=== PATIENT | male | born 1965 | race Caucasian/White ===

== ENCOUNTER 2017-01-21 19:44 | Emergency (ER) | payer OTHER ==
--- NOTE | 2017-01-21 19:48 | PDOC ---
History of Present Illness - General History Source: Patient Exam Limitations: No Limitations - History of Present Illness Initial Comments: 01/21/17 19:57 The patient is a 51 year old male, with a significant past medical history of recent herniated discs , who presents to the emergency department with a back pain for about 2 weeks. The patient reports about 2 weeks ago bending down to pickle pumper something with the immediate onset of pain in his lower back area after. He reports since that incident his pain has been increasingly worse. He reports the pain often radiates from his lower back into his left leg down into his toes. He also notes as a result having some numbness and tingling in his LLE. 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 He reports going for an MRI which revealed herniated discs at L4L5. As per orders, the patient was sent to physical therapy and was prescribed muscle relaxants with no alleviation of his pain. He denies any recent fevers, chills, headache or dizziness. He denies any recent nausea, vomit , diarrhea or constipation. PAST MEDICAL HISTORY: See HPI PAST SURGICAL HISTORY: No pertinent history. FAMILY HISTORY: No pertinent history. SOCIAL HISTORY: Patient lives with family and is employed. MEDICATIONS: Reviewed. ALLERGIES: As per nursing notes. ROS General: No fevers or chills, no weakness, no weight loss HEENT: No change in vision. No sore throat. No ear pain CardioVascular: No chest pain or shortness of breath Respiratory:No cough, or wheezing. Gastrointestinal: No nausea, vomiting, diarrhea or constipation. No rectal bleeding Genitourinary: No dysuria, hematuria, or frequency Musculoskeletal: +back pain. No joint or muscle pain or swelling Neurologic: No headache, vertigo, dizziness or loss of consciousness Psychiatric: No depression Skin: No rashes or easy bruising Endocrine: no increased thirst or abnormal weight change Allergic: no skin or latex allergy All other systems reviewed and normal Exam: GENERAL: The patient is awake, alert, and fully oriented, in no acute distress. HEAD: Normal with no signs of trauma. EYES: Pupils equal, round and reactive to light, extraocular movements intact, sclera anicteric, conjunctiva clear. BACK: Tenderness and spasms on palpation to the left lateral paraspinal area with tenderness over the sciatic notch. EXTREMITIES: Normal range of motion, no edema. NEUROLOGICAL: Normal speech, normal gait. PSYCH: Normal mood, normal affect. SKIN: Warm, Dry, normal turgor, no rashes or lesions noted. <Lester Milian - Last Filed: 01/21/17 19:57> - General History Source: Patient Exam Limitations: No Limitations - History of Present Illness Initial Comments: 01/21/17 20:38 A portion of this note was documented by scribe services under my direction. I have reviewed the details of the note, within reason, and agree with the documentation. The case summary and management plan written by me. Assessment and plan: This is a 51-year-old male with approximate 2 weeks of the low back pain with radiation down his left leg secondary to a herniated disc at the epidural level of L4 as well as L5. Patient symptoms are consistent with sciatica. Patient saw a chiropractor that seemed to make the pain worse. Patient does have an orthopedist that he saw and had an MRI showing the disc herniation. Patient was given medication here in the emergency room with improvement of his symptoms but not complete resolution.. Patient discharged home with prescriptions for ibuprofen and diazepam. Patient was told to call his orthopedist in the morning. <Hillary Ballard I - Last Filed: 01/21/17 21:46> - General Chief Complaint: Back Pain Stated Complaint: BACK PAIN Time Seen by Provider: 01/21/17 19:47 Past History <Lester Milian - Last Filed: 01/21/17 19:57> - Past Medical History GI Disorders: Yes (H-PYLORI GASTRITIS, DIVERTICULAR ABSCESS, COLON POLYP) Hypercholesterolemia: Yes - Psycho/Social/Smoking Cessation Hx Anxiety: No Suicidal Ideation: No Smoking History: Current some day smoker Have you smoked in the past 12 months: No Number of Cigarettes Smoked Daily: 2 'Breaking Loose' booklet given: 10/04/13 Hx Alcohol Use: Yes ([facility].) Drug/Substance Use Hx: No Substance Use Type: None Hx Substance Use Treatment: No <Hillary Ballard I - Last Filed: 01/21/17 21:46> - Past Medical History Allergies/Adverse Reactions: Allergies Allergy/AdvReac Type Severity Reaction Status Date / Time No Known Allergies Allergy Verified 10/04/13 20:42 Home Medications: Ambulatory Orders Cyclobenzaprine HCl [Flexeril 10 mg] 10 mg PO TID PRN 01/21/17 Diazepam [Valium] 5 mg PO HS #5 tablet MDD 1 01/21/17 Diclofenac Sodium 50 mg PO TID 01/21/17 Gabapentin 100 mg PO TID #90 capsule 01/21/17 *Physical Exam - Vital Signs Last Vital Signs Temp Pulse Resp BP Pulse Ox 98 F 79 14 138/100 100 01/21/17 19:47 01/21/17 19:47 01/21/17 19:47 01/21/17 19:47 01/21/17 19:47 <Lester Milian - Last Filed: 01/21/17 19:57> *DC/Admit/Observation/Transfer - Attestations Scribe Attestion: 01/21/17 19:55 Documentation prepared by Lester Milian, acting as medical physiologist for Hillary Ballard MD. <Lester Milian - Last Filed: 01/21/17 19:57> - Discharge Dispostion Admit: No <Hillary Ballard I - Last Filed: 01/21/17 21:46> Diagnosis at time of Disposition: Sciatica Qualifiers: Laterality: left Qualified Code(s): M54.32 - Sciatica, left side - Discharge Dispostion Disposition: HOME Condition at time of disposition: Good - Prescriptions Prescriptions: Gabapentin 100 mg PO TID #90 capsule Diazepam [Valium] 5 mg PO HS #5 tablet MDD 1 - Referrals Referrals: Reinaldo Jimenez MD [Primary Care Provider] - - Patient Instructions Printed Discharge Instructions: Sciatica (Alternative Therapy), DI for Back Pain With Sciatica Additional Instructions: Stop taking those cyclobenzaprine (flexeril) Take the Valium instead one tablet before bedtime it will make you very drowsy so limited to the nighttime hours.. Continue taking the diclofenac. It is an anti-inflammatory and will help with the pain. Start taking gabapentin 1 tablet 3 times a day. Follow-up with a pain specialist. If you need a pain specialist call Dr. Garcia at [phone] for an appointment. Return to the emergency department immediately with ANY new, persistent or worsening symptoms. Continue any medications as previously prescribed by your physician. You should follow up with your primary doctor as soon as possible regarding today's emergency department visit. . Please make sure your doctor reviews the results of your emergency evaluation. Thank you for coming to the Emergency Department today for your care. It was a pleasure to see you today. Please note that your evaluation is INCOMPLETE until you follow-up with your doctor.
[2017-01-21] MEDS ORDERED: ACETAMINOPHEN 1000 MG/100 ML VIAL (NON FORMULARY) IVPB ONE (19:52)
[2017-01-21] MEDS ORDERED: diazePAM 5 MG TABLET PO ONE (19:52)
[2017-01-21 19:53] VITALS: PULSE 79; TEMP 98; BMI 28.0
[2017-01-21] MEDS ORDERED: DEXAMETHASONE SOD PHOSPHATE 10 MG/1 ML VIAL IVPUSH ONE (19:53)
[2017-01-21] MEDS ORDERED: KETOROLAC TROMETHAMINE 30 MG/1 ML VIAL IVPUSH ONE (19:53)
[2017-01-21] MEDS ORDERED: DEXAMETHASONE SOD PHOSPHATE 10 MG/1 ML VIAL ONE (20:01)
[2017-01-21] MEDS ORDERED: KETOROLAC TROMETHAMINE 30 MG/1 ML VIAL ONE (20:01)
[2017-01-21] MEDS ORDERED: diazePAM 5 MG TABLET ONE (20:01)
[2017-01-21] MEDS ORDERED: ACETAMINOPHEN INJECTION 100 ML IVPB ONE (20:06)
[2017-01-21 21:40] VITALS: BP 148/98
== END 2017-01-21 21:47 | disposition home or self-care (01) ==
LOC: FER 19:44
PROC: 3E033NZ Introduction of Analgesics, Hypnotics, Sedatives into Peripheral Vein, Percutaneous Approach (ICD-10-PCS; principal; 2017-01-21)
PROC: 3E033GC Introduction of Other Therapeutic Substance into Peripheral Vein, Percutaneous Approach (ICD-10-PCS; 2017-01-21)
PROC: 3E0333Z Introduction of Anti-inflammatory into Peripheral Vein, Percutaneous Approach (ICD-10-PCS; 2017-01-21)
DX: M54.32 Sciatica, left side (principal)
CPT/HCPCS: 99283-25

== ENCOUNTER 2017-09-30 03:55 | Emergency (ER) | payer OTHER ==
--- NOTE | 2017-09-30 04:05 | PDOC ---
History of Present Illness - General History Source: Patient, Significant Other, Spouse, Old Records Exam Limitations: No Limitations - History of Present Illness Initial Comments: 09/30/17 04:20 The patient is a 52 year old male, accompanied by , with no significant past medical history who present to the emergency room with shortness of breath and left arm tingling for 1 hour. The patient states that he woke up diaphoretic at 3am. He states that he was short of breath and had left arm tingling but noted it may be secondary to sleeping on his arm. After one hour of continual shortness of breath the patient decided to come to the ED. He denies any significant family history, recent travel, or psychiatric history. The patient notes that he felt lightheaded throughout the day yesterday. <Carlos Charles - Last Filed: 09/30/17 04:20> - General History Source: Patient <Valente Harvey - Last Filed: 09/30/17 05:14> - General Chief Complaint: Chest Pain Stated Complaint: CHEST PAIN, SOB,SWEATING Time Seen by Provider: 09/30/17 04:00 Past History <Carlos Charles - Last Filed: 09/30/17 04:20> - Past Medical History COPD: No GI Disorders: Yes (H-PYLORI GASTRITIS, DIVERTICULAR ABSCESS, COLON POLYP) Hypercholesterolemia: Yes - Suicide/Smoking/Psychosocial Hx Smoking History: Current some day smoker Have you smoked in the past 12 months: No Number of Cigarettes Smoked Daily: 2 'Breaking Loose' booklet given: 10/04/13 Hx Alcohol Use: Yes Drug/Substance Use Hx: No Substance Use Type: None Hx Substance Use Treatment: No <Valente Harvey - Last Filed: 09/30/17 05:14> - Past Medical History Allergies/Adverse Reactions: Allergies Allergy/AdvReac Type Severity Reaction Status Date / Time No Known Allergies Allergy Verified 09/30/17 04:10 Home Medications: Ambulatory Orders Azithromycin [Zithromax 250mg Tablets -] 250 mg PO UTDICT #6 tab 09/13/17 Hydrocodone Bit/Homatrop Me-Br [Hydrocodone-Homatropine Syrup] 5 ml PO BID PRN # 60 ml MDD 10 ml 09/13/17 Review of Systems - Review of Systems Able to Perform ROS?: Yes Comments:: 09/30/17 04:20 CONSTITUTIONAL: Absent: fever, no chills, no fatigue EYES: Absent: visual changes ENT: Absent: ear pain, no sore throat CARDIOVASCULAR: Absent: chest pain, no palpitations RESPIRATORY: (+) SOB Absent: cough GI: Absent: abdominal pain, no nausea, no vomiting, no constipation, no diarrhea GENITOURINARY: Absent: dysuria, no frequency, no hematuria MUSCULOSKELETAL: (+) Left arm tingling Absent: back pain, no arthralgia, no myalgia SKIN: Absent: rash NEURO: (+) Lightheadedness Absent: Headache <Carlos Charles - Last Filed: 09/30/17 04:20> *Physical Exam - Vital Signs Last Vital Signs Temp Pulse Resp BP Pulse Ox 98.8 F 65 19 139/90 100 09/30/17 04:06 09/30/17 04:06 09/30/17 04:06 09/30/17 04:06 09/30/17 04:06 - Physical Exam Comments: 09/30/17 04:21 GENERAL: Well-appearing, well-nourished. No apparent distress. HEENT: Normocephalic, atraumatic. PERRL, EOM intact. CARDIOVASCULAR: Normal S1, S2. Regular rate and rhythm. PULMONARY: Clear to auscultation bilaterally. ABDOMEN: Soft, non-distended, non-tender. EXTREMITIES: Normal ROM in all four extremities. No gross deformities. SKIN: Warm, dry. No rash NEUROLOGICAL: No focal neurological deficits. <Carlos Charles - Last Filed: 09/30/17 04:20> ED Treatment Course - LABORATORY CBC & Chemistry Diagram: 09/30/17 04:18 09/30/17 04:18 <Valente Harvey - Last Filed: 09/30/17 05:14> Medical Decision Making - Medical Decision Making 09/30/17 05:08 No c/o cp.. SOB improved. Pt doesn't smoke. NO h/o cancer No recent travel. labs stable. Pt advised to follow up with his pcp for re-evaluation. Dr. Harvey: The scribe's documentation has been prepared under my direction and personally reviewed by me in its entirery. I confirm that the note above accurately reflects all work, treatment, procedures, and medical decision making performed by me. <Valente Harvey - Last Filed: 09/30/17 05:14> *DC/Admit/Observation/Transfer - Attestations Scribe Attestion: 09/30/17 04:21 Documentation prepared by Carlos Charles, acting as mobile paramedical examiner for Valente Harvey DO. <Carlos Charles - Last Filed: 09/30/17 04:20> - Discharge Dispostion Admit: No <Valente Harvey - Last Filed: 09/30/17 05:14> Diagnosis at time of Disposition: Shortness of breath - Discharge Dispostion Disposition: HOME Condition at time of disposition: Stable - Referrals Referrals: Eddie Westbrook MD [Staff Physician] - - Patient Instructions Printed Discharge Instructions: DI for Shortness of Breath Additional Instructions: Please follow up with your primary care doctor or the doctor referred to you here in the ER. Return if any problems
[2017-09-30] MEDS ORDERED: ASPIRIN 81 MG CHEWABLE TABLETS PO ONE (04:09)
[2017-09-30 04:11] VITALS: BP 139/90; PULSE 65; TEMP 98.8; BMI 29.7
[2017-09-30] MEDS ORDERED: ASPIRIN COATED 81 MG TABLET.EC ONE (04:29)
[2017-09-30 04:32] LABS: BASOPHIL 1.5 % (0-2.0); EOSINOPHIL 6.7 % (0-4.5); MCH 30.9 pg (25.7-33.7); MCHC 34.9 g/dl (32.0-35.9); MEAN CELL VOLUME 88.4 fl (80-96); MEAN PLT VOLUME 7.3 fl (7.5-11.1); NEUTROPHILS 48.3 % (42.8-82.8); PLATELET COUNT 278 K/MM3 (134-434); RDW 13.6 % (11.9-15.9); WHITE BLOOD COUNT 5.8 K/mm3 (4.0-10.0)
[2017-09-30 04:41] LABS: INR 0.96 (0.82-1.09); PROTHROMBIN TIME (PATIENT) 10.8 SEC (9.98-11.88)
[2017-09-30 04:54] LABS: ALBUMIN 3.8 g/dl (3.4-5.0); ANION GAP 9 (8-16); BILIRUBIN,TOTAL 0.4 mg/dL (0.2-1.0); CALCIUM 8.5 mg/dL (8.5-10.1); CO2 26 mmol/L (21-32); CREATININE 0.7 mg/dL (0.7-1.3); GLUCOSE,RANDOM 104 mg/dL (74-106); SGOT/AST 21 U/L (15-37); SGPT/ALT 31 U/L (12-78)
[2017-09-30 04:56] LABS: ALK PHOS 69 U/L (45-117); CPK 291 IU/L (39-308); TROPONIN I < 0.02 ng/ml (0.00-0.05)
--- NOTE | 2017-09-30 12:10 | EKG ---
Test Reason : Blood Pressure : / mmHG Vent. Rate : 065 BPM Atrial Rate : 065 BPM P-R Int : 162 ms QRS Dur : 106 ms QT Int : 424 ms P-R-T Axes : 036 010 026 degrees QTc Int : 440 ms NORMAL SINUS RHYTHM INCOMPLETE RIGHT BUNDLE BRANCH BLOCK CANNOT RULE OUT ANTERIOR INFARCT , AGE UNDETERMINED ABNORMAL ECG NO PREVIOUS ECGS AVAILABLE Confirmed by LUPILLO GALINDO MD ([id number]) on 09/30/2017 12:10:38 PM Referred By: Confirmed By:LUPILLO GALINDO MD
== END 2017-09-30 05:40 | disposition home or self-care (01) ==
LOC: SUPCPDRO 03:55 → JER 03:55
DX: R06.02 Shortness of breath (principal)
CPT/HCPCS: 36415; 71010-TC; 80053; 82550; 82553; 83735; 84484; 85025; 85610; 93005; 93010; 99281-25

== ENCOUNTER 2019-03-11 06:55 | Day surgery (SDC) | payer OTHER ==
[2019-03-10 15:23] VITALS: BMI 31.1
[2019-03-11 08:47] VITALS: TEMP 97.5
[2019-03-11 09:51] VITALS: BP 111/59; PULSE 61
--- NOTE | 2019-03-14 14:33 | PATH ---
Surgical Pathology Report Patient Name: ZARA PEDROZA [facility]. Rec. #: [id number] /Age/Gender: 1965 (Age: 53) / M Account: [id number] Location: U-ENDOSCOPY Taken: 03/11/2019 Received: 03/11/2019 Reported: 03/14/2019 Physicians: Clinton Yun M.D. Specimen(s) Received A: 2ND PORTION DUODENUM AND BULB B: GASTRIC ULCERS C: ANTRUM D: DISTAL AND MID ESOPHAGUS E: PROXIMAL TRANSVERSE COLON F: CECAL POLYP G: RIGHT COLON Clinical History Dysphagia, history of adenomatous polyp, family history of colon cancer Postoperative diagnosis: Gastric ulcers, GERD, colon polyps, diverticulosis Final Diagnosis A. DUODENUM, SECOND PORTION AND BULB, BIOPSY: DUODENAL MUCOSA WITHOUT SIGNIFICANT PATHOLOGIC FINDINGS. B. GASTRIC ULCERS, BIOPSY: GASTRIC MUCOSA WITH MILD CHRONIC GASTRITIS, FOCAL EROSION, REACTIVE CHANGES, AND INTESTINAL METAPLASIA. IMMUNOHISTOCHEMICAL STAIN FOR H. PYLORI IS NEGATIVE. C. ANTRUM, BIOPSY: GASTRIC ANTRAL MUCOSA WITH MODERATE CHRONIC GASTRITIS, FOCAL EROSION, REACTIVE CHANGES, AND INTESTINAL METAPLASIA. IMMUNOHISTOCHEMICAL STAIN FOR H. PYLORI IS NEGATIVE. D. DISTAL AND MID ESOPHAGUS, BIOPSY: SQUAMOUS MUCOSA WITH VASCULAR CONGESTION, MILD CHRONIC INFLAMMATION, MILD BASAL CELL HYPERPLASIA, CONSISTENT WITH MILD REFLUX ESOPHAGITIS. E. PROXIMAL TRANSVERSE COLON, POLYP, BIOPSY: TUBULAR ADENOMA. F. CECAL POLYP, BIOPSY: TUBULAR ADENOMA. G. COLON, RIGHT, POLYP, BIOPSY: TUBULAR ADENOMA. Electronically Signed Dione Cevallos M.D. Gross Description A. Received in formalin, labeled "second portion and bulb of duodenum" are 4 mcdonnell, irregular portions of soft tissue ranging from 0.3-0.5 cm. in greatest dimension. The specimens are submitted in toto in one cassette. B. Received in formalin, labeled "gastric ulcers biopsy" are 2 mcdonnell, irregular portions of soft tissue averaging 0.4 cm. in greatest dimension. The specimens are submitted in toto in one cassette. C. Received in formalin, labeled "antrum biopsy" are 3 mcdonnell, irregular portions of soft tissue ranging from 0.2-0.5 cm. in greatest dimension. The specimens are submitted in toto in one cassette. D. Received in formalin, labeled "distal and mid esophagus biopsy" are 4 mcdonnell, irregular portions of soft tissue ranging from 0.3-0.6 cm. in greatest dimension. The specimens are submitted in toto in one cassette. E. Received in formalin, labeled "proximal transverse colon polyp biopsy" are 4 mcdonnell, irregular portions of soft tissue ranging from 0.1-0.4 cm. in greatest dimension. The specimens are submitted in toto in one cassette. F. Received in formalin, labeled "cecal polyp biopsy" are 3 mcdonnell, irregular portions of soft tissue averaging 0.3 cm. in greatest dimension. The specimens are submitted in toto in one cassette. G. Received in formalin, labeled "right colon polyp biopsy" are 4 mcdonnell, irregular portions of soft tissue ranging from 0.2-0.3 cm. in greatest dimension. The specimens are submitted in toto in one cassette. 03/[facility]
== END 2019-03-11 09:51 | disposition home or self-care (01) ==
LOC: JASU-ENDO 06:55
PROVIDERS: ATTEND Internal Medicine Gastroenterology
PROC: 0DBL8ZX Excision of Transverse Colon, Via Natural or Artificial Opening Endoscopic, Diagnostic (ICD-10-PCS; 2019-03-11)
PROC: 0DBH8ZX Excision of Cecum, Via Natural or Artificial Opening Endoscopic, Diagnostic (ICD-10-PCS; 2019-03-11)
PROC: 0DB38ZX Excision of Lower Esophagus, Via Natural or Artificial Opening Endoscopic, Diagnostic (ICD-10-PCS; 2019-03-11)
PROC: 0DB68ZX Excision of Stomach, Via Natural or Artificial Opening Endoscopic, Diagnostic (ICD-10-PCS; 2019-03-11)
PROC: 0DB28ZX Excision of Middle Esophagus, Via Natural or Artificial Opening Endoscopic, Diagnostic (ICD-10-PCS; 2019-03-11)
PROC: 0DBK8ZX Excision of Ascending Colon, Via Natural or Artificial Opening Endoscopic, Diagnostic (ICD-10-PCS; principal; 2019-03-11 08:00)
DX: Z12.11 Encounter for screening for malignant neoplasm of colon (principal); Z86.010 Personal history of colon polyps; Z80.0 Family history of malignant neoplasm of digestive organs; D12.2 Benign neoplasm of ascending colon; D12.0 Benign neoplasm of cecum; D12.3 Benign neoplasm of transverse colon; K57.30 Diverticulosis of large intestine without perforation or abscess without bleeding; K21.9 Gastro-esophageal reflux disease without esophagitis; K29.70 Gastritis, unspecified, without bleeding; K25.9 Gastric ulcer, unspecified as acute or chronic, without hemorrhage or perforation
CPT/HCPCS: 88305-TC; 88342-TC

== ENCOUNTER 2023-08-31 20:37 | Emergency (ER) | payer OTHER ==
[2023-08-31 20:52] VITALS: TEMP 98.8; BMI 28.5
[2023-08-31] MEDS ORDERED: SODIUM CHLORIDE 1,000 ML IV ONE (20:58)
[2023-08-31] MEDS ORDERED: morphine CARPU-JECT 4 MG/1 ML DISP.SYRIN IVPUSH ONE (20:58)
[2023-08-31] MEDS ORDERED: morphine SULFATE 4 MG/ML VIAL ONE (21:06)
[2023-08-31 21:18] LABS: HEMATOCRIT 38.8 % (35.4-49); HEMOGLOBIN 12.8 G/dL (11.7-16.9); MCH 29.5 pg (25.7-33.7); MCHC 32.9 g/dl (32.0-35.9); MEAN CELL VOLUME 89.9 fl (80-96); MEAN PLT VOLUME 6.9 fl (7.5-11.1); PLATELET COUNT 331.9 10^3/uL (134-434); RBC 4.32 10^6/uL (4.00-5.60); RDW 13.7 % (11.9-15.9); WHITE BLOOD COUNT 11.5 10^3/uL (4.0-10.8)
[2023-08-31 21:36] LABS: BILIRUBIN,TOTAL 0.9 mg/dl (0.2-1); CALCIUM 9.3 mg/dl (8.5-10.1); CREATININE 0.9 mg/dl (0.6-1.3); MAGNESIUM 1.7 mg/dL (1.8-2.4); PHOSPHOROUS 3.1 (2.5-4.9); POTASSIUM 3.9 mmol/L (3.5-5.1); TOT PROT 6.5 g/dl (6.4-8.2)
[2023-08-31] MEDS ORDERED: morphine CARPU-JECT 2 MG/1 ML DISP.SYRIN IVPUSH ONE (22:49)
[2023-09-01 01:10] VITALS: BP 124/82; PULSE 61; RESP 16
== END 2023-09-01 01:24 | disposition home or self-care (01) ==
LOC: FER 20:37
PROC: 3E033GC Introduction of Other Therapeutic Substance into Peripheral Vein, Percutaneous Approach (ICD-10-PCS; 2023-08-31)
PROC: 3E033GC Introduction of Other Therapeutic Substance into Peripheral Vein, Percutaneous Approach (ICD-10-PCS; 2023-08-31)
PROC: 3E0337Z Introduction of Electrolytic and Water Balance Substance into Peripheral Vein, Percutaneous Approach (ICD-10-PCS; 2023-08-31)
PROC: 3E033GC Introduction of Other Therapeutic Substance into Peripheral Vein, Percutaneous Approach (ICD-10-PCS; principal; 2023-09-01)
DX: R10.32 Left lower quadrant pain (principal); K57.32 Diverticulitis of large intestine without perforation or abscess without bleeding
CPT/HCPCS: 36415; 74177-TC; 80053; 83735; 84100; 85027; 99285-25; Q9967

== ENCOUNTER 2023-10-30 05:17 | Day surgery (SDC) | payer OTHER ==
[2023-10-28 13:03] VITALS: BMI 28.8
[2023-10-30 10:33] VITALS: TEMP 97.9
[2023-10-30 11:11] VITALS: BP 122/70; PULSE 60; RESP 15
== END 2023-10-30 11:11 | disposition home or self-care (01) ==
LOC: JASU-ENDO 05:17
PROVIDERS: ATTEND Internal Medicine Gastroenterology
PROC: 0DBM8ZX Excision of Descending Colon, Via Natural or Artificial Opening Endoscopic, Diagnostic (ICD-10-PCS; 2023-10-30)
PROC: 0DBN8ZX Excision of Sigmoid Colon, Via Natural or Artificial Opening Endoscopic, Diagnostic (ICD-10-PCS; 2023-10-30)
PROC: 0DB98ZX Excision of Duodenum, Via Natural or Artificial Opening Endoscopic, Diagnostic (ICD-10-PCS; 2023-10-30)
PROC: 0DB78ZX Excision of Stomach, Pylorus, Via Natural or Artificial Opening Endoscopic, Diagnostic (ICD-10-PCS; 2023-10-30)
PROC: 0DB68ZX Excision of Stomach, Via Natural or Artificial Opening Endoscopic, Diagnostic (ICD-10-PCS; 2023-10-30)
PROC: 0DB28ZX Excision of Middle Esophagus, Via Natural or Artificial Opening Endoscopic, Diagnostic (ICD-10-PCS; 2023-10-30)
PROC: 0DB38ZX Excision of Lower Esophagus, Via Natural or Artificial Opening Endoscopic, Diagnostic (ICD-10-PCS; 2023-10-30)
PROC: 0DBK8ZX Excision of Ascending Colon, Via Natural or Artificial Opening Endoscopic, Diagnostic (ICD-10-PCS; principal; 2023-10-30 10:00)
DX: Z12.11 Encounter for screening for malignant neoplasm of colon (principal); K12.2 Cellulitis and abscess of mouth; K63.5 Polyp of colon; K57.30 Diverticulosis of large intestine without perforation or abscess without bleeding; K64.8 Other hemorrhoids; K29.50 Unspecified chronic gastritis without bleeding; K21.00 Gastro-esophageal reflux disease with esophagitis, without bleeding; K31.7 Polyp of stomach and duodenum; Z80.0 Family history of malignant neoplasm of digestive organs; Z86.010 Personal history of colon polyps; R10.32 Left lower quadrant pain
CPT/HCPCS: 88305-TC; 88342-TC